=== PATIENT | female | born 1980 | race Caucasian/White ===

== ENCOUNTER 2018-02-18 17:46 | Day surgery (SDC) | payer MEDICAID, MEDICARE ==
[~2018-02-18 17:46] MED LIST: LACTATED RINGERS 1,000 ML IV ONE
[2018-02-18 18:45] LABS: GLUCOSE, URINE (UA) NEGATIVE (NEGATIVE); KETONES,URINE (UA) TRACE mg/dL (NEGATIVE); LEUKOCYTE ESTERASE, URINE NEGATIVE (NEGATIVE); NITRITE,URINE NEGATIVE (NEGATIVE); OCCULT BLOOD,URINE LARGE (NEGATIVE); PH,URINE 5.5 PH (5.0-7.5); PROTEIN,URINE TRACE mg/dL (NEGATIVE); UROBILINOGEN,URINE 0.2 (NORMAL) E.U./dL (NORMAL)
[2018-02-18 18:57] LABS: CLARITY,URINE HAZY (CLEAR)
[2018-02-18 18:58] LABS: BACTERIA,URINE None Seen /HPF (None Seen); BILIRUBIN,URINE NEGATIVE (NEGATIVE); HCG UR QUAL NEGATIVE; ICTOTEST,URINE NEGATIVE; MUCUS,URINE Marked Strands; SQUAMOUS EPITHELIAL CELL,UR FEW Squamous (<= Few)
[2018-02-18 19:20] LABS: BASOPHILS # (AUTO) 0.2 10^3/uL (0.0-0.1); BASOPHILS % (AUTO) 0.9 %; EOSINOPHILS # (AUTO) 0.1 10^3/uL (0.0-0.7); EOSINOPHILS % (AUTO) 0.3 %; HGB - HEMOGLOBIN 14.1 g/dL (12.0-16.0); LYMPHOCYTES % (AUTO) 5.6 %; MEAN CORPUSCULAR HEMOGLOBIN 29.9 pg (27.0-31.0); MEAN CORPUSCULAR HGB CONC 33.6 g/dL (32.0-36.0); MEAN CORPUSCULAR VOLUME 88.8 fL (81.0-99.0); MONOCYTES # (AUTO) 0.9 10^3/uL (0.0-1.0); MONOCYTES % (AUTO) 5.2 %; NEUTROPHILS # (AUTO) 15.8 10^3/uL (1.5-6.6); PLT - PLATELET COUNT 242 10^3/uL (130-450); RED BLOOD COUNT 4.72 10^6/uL (4.20-5.40); RED CELL DISTRIBUTION WIDTH 13.1 % (12.0-15.0)
[2018-02-18 19:39] LABS: ALBUMIN 4.6 g/dL (3.2-5.5); ALBUMIN/GLOBULIN RATIO 1.4 (1.0-2.2); BILIRUBIN,TOTAL 1.6 mg/dL (0.2-1.0); CALCIUM 9.5 mg/dL (8.5-10.3); CREATININE 0.7 mg/dL (0.4-1.0); TOTAL PROTEIN 7.9 g/dL (6.7-8.2)
--- NOTE | 2018-02-18 20:30 | ED Physician Documentation ---
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 She has had 3 episodes of abdominal pain in the last few months, twice in the right upper quadrant. But over the last 2 days has had right-sided and now pelvic pain with nausea but no vomiting. She had a small diarrheal bowel movement prior to arrival. No fevers. No history of abdominal surgeries.) Review of Systems Ten Systems: 10 systems reviewed and negative Constitutional: denies: Fever, Chills Cardiac: denies: Chest pain / pressure, Palpitations Respiratory: denies: Dyspnea, Cough GI: reports: Abdominal Pain, Nausea, Diarrhea. denies: Vomiting, Constipation, Bloody / black stool PD PAST MEDICAL HISTORY - Past Medical History Past Medical History: Yes Cardiovascular: Congestive heart failure - Past Surgical History Past Surgical History: No - Allergies Allergies/Adverse Reactions: Allergies Allergy/AdvReac Type Severity Reaction Status Date / Time codeine Allergy Anaphylaxis Verified 02/18/18 17:53 - Family History Family history: reports: Non contributory PD ED PE NORMAL - Vitals Vital signs reviewed: Yes - General General: Alert and oriented X 3, No acute distress - HEENT HEENT: PERRL, EOMI - Neck Neck: Supple, no meningeal sign, No bony TTP - Cardiac Cardiac: RRR, No murmur - Respiratory Respiratory: No respiratory distress, Clear bilaterally - Abdomen Abdomen: Normal bowel sounds, Soft, Other (Mild diffuse tenderness with significant tenderness in the right lower quadrant but no guarding or rebound) - Back Back: No CVA TTP, No spinal TTP - Derm Derm: Normal color, Warm and dry - Extremities Extremities: No edema, No calf tenderness / cord - Neuro Neuro: Alert and oriented X 3, Normal speech Results - Vitals Vitals: Vital Signs - 24 hr 02/18/18 02/18/18 02/18/18 17:50 20:00 20:09 Temperature 36.1 C L 36.9 C Heart Rate 60 58 L 77 Respiratory 18 15 26 H Rate Blood Pressure 119/71 136/68 H 132/86 H O2 Saturation 99 99 100 Oxygen O2 Source Room air - Labs Labs: Laboratory Tests 02/18/18 02/18/18 02/18/18 18:40 18:40 19:15 WBC 18.0 H RBC 4.72 Hgb 14.1 Hct 41.9 MCV 88.8 MCH 29.9 MCHC 33.6 RDW 13.1 Plt Count 242 MPV 10.0 Neut # (Auto) 15.8 H Lymph # (Auto) 1.0 L [place] # (Auto) 0.9 Eos # (Auto) 0.1 Baso # (Auto) 0.2 H Absolute Nucleated RBC 0.00 Nucleated RBC % 0.0 Sodium Potassium Chloride Carbon Dioxide Anion Gap BUN Creatinine Estimated GFR (MDRD) Glucose Calcium Total Bilirubin AST ALT Alkaline Phosphatase Total Protein Albumin Globulin Albumin/Globulin Ratio Lipase Urine Color DARK YELLOW Urine Clarity HAZY Urine pH 5.5 Ur Specific [place] 1.020 1.020 Urine Protein TRACE Urine Glucose (UA) NEGATIVE Urine Ketones TRACE Urine Occult Blood LARGE H Urine Nitrite NEGATIVE Urine Bilirubin NEGATIVE Urine Urobilinogen 0.2 (NORMAL) Ur Leukocyte Esterase NEGATIVE Urine RBC 11-25 H Urine WBC 0-3 Ur Squamous Epith Cells FEW Squamous Urine Bacteria None Seen Urine Mucus Marked Strands Ur Microscopic Review INDICATED Urine Culture Comments NOT INDICATED Urine HCG, Qual NEGATIVE 02/18/18 19:15 WBC RBC Hgb Hct MCV MCH MCHC RDW Plt Count MPV Neut # (Auto) Lymph # (Auto) [place] # (Auto) Eos # (Auto) Baso # (Auto) Absolute Nucleated RBC Nucleated RBC % Sodium 137 Potassium 3.9 Chloride 101 Carbon Dioxide 24 Anion Gap 12.0 BUN 7 Creatinine 0.7 Estimated GFR (MDRD) 93 Glucose 109 H Calcium 9.5 Total Bilirubin 1.6 H AST 21 ALT 25 Alkaline Phosphatase 79 Total Protein 7.9 Albumin 4.6 Globulin 3.3 Albumin/Globulin Ratio 1.4 Lipase 25 Urine Color Urine Clarity Urine pH Ur Specific [place] Urine Protein Urine Glucose (UA) Urine Ketones Urine Occult Blood Urine Nitrite Urine Bilirubin Urine Urobilinogen Ur Leukocyte Esterase Urine RBC Urine WBC Ur Squamous Epith Cells Urine Bacteria Urine Mucus Ur Microscopic Review Urine Culture Comments Urine HCG, Qual - Rads (name of study) CT A/P Radiology: EMP read contemporaneously (Acute appendicitis without evidence of perforation or abscess) PD MEDICAL DECISION MAKING - ED course ED course: 38-year-old woman presents with signs and symptoms consistent with acute appendicitis and a CT showing same. Spoke with Dr. Cote who will see the patient in the emergency department at 9:50 PM. We agreed on Zosyn in the interim. Departure - Departure Disposition: ED Transfer to [facility] Clinical Impression: Appendicitis Qualifiers: Appendicitis type: acute appendicitis Acute appendicitis type: with localized peritonitis Appendicitis gangrene presence: without gangrene Appendicitis perforation presence: without perforation Appendicitis abscess presence: without abscess Qualified Code(s): K35.30 - Acute appendicitis with localized peritonitis, without perforation or gangrene Condition: Serious
[2018-02-18] MEDS ORDERED: ONDANSETRON 4 MG/2 ML VIAL IVP STA (20:47)
[2018-02-18] MEDS ORDERED: HYDROmorphone 1 MG/ML CARPUJECT IVP STA (20:47)
[2018-02-18] MEDS ORDERED: IOPAMIDOL-300 100 ML VIAL ONE (21:18)
[2018-02-18] MEDS ORDERED: IOPAMIDOL-300 100 ML VIAL IVP ONE (21:48)
[2018-02-18] MEDS ORDERED: PIPERACILLIN/TAZOBACTAM 3.375 GM in SODIUM CHLORIDE 0.9% MINIBAG 100 ML IV STA (21:48)
--- NOTE | 2018-02-18 22:01 | CT Report ---
Reason: IV only, RLQ pain Procedure Date: 02/18/2018 Accession Number: [id number] / [id number] Procedure: CT - Abdomen/Pelvis W/ CPT Code: FULL RESULT: EXAM: CT ABDOMEN AND PELVIS EXAM DATE: 02/18/2018 09:35 PM. CLINICAL HISTORY: IV only, RLQ pain. COMPARISONS: None. TECHNIQUE: Routine helical CT imaging was performed through the abdomen and pelvis. IV contrast: 100 ML ISOVUE 300. Enteric contrast: No. Reconstructions: Coronal and sagittal. In accordance with CT protocol optimization, one or more of the following dose reduction techniques were utilized for this exam: automated exposure control, adjustment of mA and/or KV based on patient size, or use of iterative reconstructive technique. FINDINGS: Lung Bases: Unremarkable. Liver: Normal. No masses. Gallbladder/Bile Ducts: Unremarkable. Spleen: Normal. Pancreas: Normal. Adrenal Glands: Normal. Kidneys: Normal. No masses or hydronephrosis. Peritoneal Cavity/Bowel: Stomach and small bowel are normal. No acute colonic abnormalities. There are subcentimeter right lower quadrant lymph nodes. No intraperitoneal free air. There is acute appendicitis. The appendix is thick-walled and dilated. It measures up to 1.5 cm in diameter. There is adjacent fat stranding. Pelvic Organs: No acute pelvic organ abnormalities are seen. Vasculature: No acute vascular findings. Bones: No significant abnormality. Other: None. IMPRESSION: There is acute appendicitis. The appendix is dilated up to 1.5 cm. It is thick-walled. There is adjacent fat stranding. There is no evidence of perforation or periappendiceal abscess. RADIA
--- NOTE | 2018-02-18 22:45 | ANESTHESIA ---
Pre-Anesthesia VS, & Labs - Diagnosis Acute appendicitis - Procedure Macedonian appy Vital Signs: Temp Pulse Resp BP Pulse Ox 36.9 C 77 26 H 132/86 H 100 02/18/18 20:00 02/18/18 20:09 02/18/18 20:09 02/18/18 20:09 02/18/18 20:09 Height 6 ft 1 in Weight (kg) 99.79 kg Body Mass Index 29.0 - NPO >8 hours - Is Patient ?: No - Lab Results Current Lab Results: Laboratory Tests 02/18/18 19:15: Sodium 137, Potassium 3.9, Chloride 101, Carbon Dioxide 24, Anion Gap 12.0, BUN 7, Creatinine 0.7, Estimated GFR (MDRD) 93, Glucose 109 H, Calcium 9.5, Total Bilirubin 1.6 H, AST 21, ALT 25, Alkaline Phosphatase 79, Total Protein 7.9, Albumin 4.6, Globulin 3.3, Albumin/Globulin Ratio 1.4, Lipase 25 02/18/18 19:15: WBC 18.0 H, RBC 4.72, Hgb 14.1, Hct 41.9, MCV 88.8, MCH 29.9, MCHC 33.6, RDW 13.1, Plt Count 242, MPV 10.0, Neut # (Auto) 15.8 H, Lymph # (Auto) 1.0 L, [place] # (Auto) 0.9, Eos # (Auto) 0.1, Baso # (Auto) 0.2 H, Absolute Nucleated RBC 0.00, Nucleated RBC % 0.0 Lab results reviewed: Yes Fish Bones: 02/18/18 19:15 02/18/18 19:15 Home Medications and Allergies Allergies/Adverse Reactions: Allergies Allergy/AdvReac Type Severity Reaction Status Date / Time codeine Allergy Anaphylaxis Verified 02/18/18 17:53 Anes History & Medical History - Anesthetic History Anesthesia Complications: reports: No previous complications Family history of Anesthesia Complications: Denies Family history of Malignant Hyperthermia: Denies - Medical History Cardiovascular: reports: Congestive heart failure Pulmonary: reports: Asthma Gastrointestinal: reports: None Urinary: reports: None Neuro: reports: None Musculoskeletal: reports: None Endocrine/Autoimmune: reports: Type 2 diabetes Blood Disorders: reports: None Smoking Status: Current every day smoker Psychosocial: reports: No issues indicated, Substance abuse - Surgical History Cardiothoracic: AICD Orthopedic: ACL reconstruction Exam General: Alert Dental: Loose/Frag Mouth Opening: Greater than 4 Fingerbreadths Neck Mobility: Normal Mallampati classification: I Thyromental Distance: greater than 6 cm Respiratory: Lungs clear Cardiovascular: Regular rate Neurological: Normal speech Mental/Cognitive Status: Alert/Oriented X3 Cognitive Status: Within normal limits Plan Anesthesia Type: General Consent for Procedure(s) Verified and Reviewed: Yes Code Status: Attempt Resuscitation ASA classification: 3-Severe systemic disease Is this case an emergency?: Yes
[2018-02-18] MEDS ORDERED: BUPIVACAINE 0.5% PF 30 ML VIAL ONE (22:49)
--- NOTE | 2018-02-18 22:50 | CONSULTATION NOTE ---
Referring Provider Name of Referring Provider:: Dr. Karthik Alas Consult Date: 02/18/18 Chief Complaint - Chief Complaint Chief Complaint: RLQ pain (recurrent but not resolving) History of Present Illness - Admitted From Admitted From:: NOT admitted - placed in outpatient - History Obtained From Records Reviewed: Yes History obtained from: Patient, chart and Dr. Alas Exam Limitations: None - History of Present Illness HPI Comment/Other: The patient is a very pleasant 38-year-old female evaluated in room 7 at [facility]'s emergency department in the presence of her . The patient states that she has had several recurrences of this pain but recently this occurred and did not improve. This prompted her admission to the emergency department. This started on Sunday and was quite severe. 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 Following this the pain worsened prompting her admission to the emergency department where Dr. Alas obtained a CT scan that was consistent with acute appendicitis (nonruptured). The patient states that she had nausea which was controlled nicely with the medications that she was given in the emergency department. She has not vomited. With the symptoms, she is mildly anorexic. Important to her history is that she had some viral cardiomyopathy as a young child and had an AICD placed. She has been followed by a import coordination and production head and is compensated well. She feels that she is in the best health of her life. The AICD has only shocked her once. Per her history, there is nothing to be done to improve her cardiac status prior to the operation. History - Past Medical History Cardiovascular: reports: Congestive heart failure Meds/Allgy - Allergies Allergies/Adverse Reactions: Allergies Allergy/AdvReac Type Severity Reaction Status Date / Time codeine Allergy Anaphylaxis Verified 02/18/18 17:53 Review of Systems - Constitutional Constitutional: reports: Malaise. denies: Fatigue, Fever, Chills - Eyes Eyes: denies: Pain - Ears, Nose & Throat Ears, Nose & Throat: denies: Ear pain - Cardiovascular Cariovascular: denies: Palpitations, Chest pain, Edema - Respiratory Respiratory: denies: Cough - Gastrointestinal Gastrointestinal: reports: Abdominal pain, Nausea. denies: Rectal bleeding, Black stools, Bloody stools, Vomiting - Genitourinary Genitourinary: denies: Dysuria - Neurological Neurological: denies: General weakness, Focal weakness Exam - Vital Signs Reviewed Vital Signs: Yes Vital Signs: Vital Signs x48h Temp Pulse Resp BP Pulse Ox 02/18/18 20:09 77 26 H 132/86 H 100 02/18/18 20:00 36.9 C 58 L 15 136/68 H 99 02/18/18 17:50 36.1 C L 60 18 119/71 99 - Physical Exam General Appearance: positive: No acute distress Eyes Bilateral: positive: No lid inflammation, Conjunctivae nml, No scleral icterus ENT: positive: Dry mucous membranes Neck: positive: Trachea midline Respiratory: positive: Chest non-tender, No respiratory distress, Breath sounds nml Cardiovascular: positive: Regular rate & rhythm Abdomen: positive: Nml bowel sounds, Tenderness (In the right lower quadrant at McBurney's point.) Rectal: positive: Other (Deferred.) Skin: positive: Color nml Extremities: positive: Non-tender, Nml appearance Neurologic/Psychiatric: positive: Oriented x3 Conclusion/Plan - Diagnosis Diagnosis: Acute appendicitis. - Plan Plan: Laparoscopic appendectomy, possible open appendectomy. The indications, procedure, alternatives including no surgery, possible risks including infection (deep or superficial), bleeding requiring transfusion (with all of its risks), and were fully explained to the patient and all questions answered. I also explained the pathophysiology. I explained that following the surgery I did not want her lifting anything over 15 pounds for 6 weeks to allow for opt imal healing and to decrease the likelihood that a hernia would occur. All questions were fully answered. Verbal and written consent was obtained. The patient, in preparation for surgery will be nothing by mouth, and receive 3.375 g of Zosyn with induction. I asked her to contact me with any surgical questions and her concerns and she stated that she would. I asked her to let me know if there is any way we can make her stay at [facility] more comfortable and she stated that she would let me know. The plan is to do this operation as an outpatient procedure and to discharge her home following the procedure at a reasonable hour in the morning. 45 minutes of [id number] time spent with the patient, over 80% in discussion and coordination of her care, and completion of the requisite paperwork. - Lab Results Lab results reviewed: Yes Fish Bones: 02/18/18 19:15 02/18/18 19:15 - Diagnostic Imaging Results Diagnostic Imaging Results: positive: Final report reviewed, Read independently Diagnostic Imaging Results Comments: Consistent with acute appendicitis.
[2018-02-18] MEDS ORDERED: ONDANSETRON 40 MG/20 ML MDV IV ONE (23:50)
[2018-02-18] MEDS ORDERED: ACETAMINOPHEN 1,000 MG/100 ML 100 ML IV ONE (23:50)
[2018-02-18] MEDS ORDERED: PROPOFOL 200 MG/20 ML VIAL IVP ONE (23:50)
[2018-02-18] MEDS ORDERED: ROCURONIUM 50 MG/5 ML VIAL IVP ONE (23:50)
[2018-02-18] MEDS ORDERED: LIDOCAINE-MPF 2% 5 ML VIAL IM ONE (23:50)
[2018-02-18] MEDS ORDERED: MIDAZOLAM 2 MG/2 ML VIAL IVP ONE (23:50)
[2018-02-18] MEDS ORDERED: fentaNYL 250 MCG/5 ML VIAL IVP ONE (23:50)
[2018-02-18] MEDS ORDERED: BUPIVACAINE 0.5% PF 30 ML VIAL SUBQ ONE ×2 (23:52)
[2018-02-18] MEDS ORDERED: LACTATED RINGERS 1,000 ML IV ONE (23:56)
--- NOTE | 2018-02-19 00:43 | OPERATIVE REPORT ---
Operative Report - General Procedure Date: 02/19/18 Planned Procedure: Laparoscopic appendectomy Pre-Op Diagnosis: Acute appendicitis Procedure Performed: Laparoscopic appendectomy Post Op Diagnosis: Acute appendicitis but with a concern for unusual cause for appendicitis (p - Procedure Note Primary Surgeon: Harpal Cote MD Anesthesia Provider: Jensen Felix CRNA Anesthesia Technique: General ET tube, Local (30 mL of half percent Marcaine) IV Fluids (mL): 1,100 Estimated Blood Loss (mL): 10 Complications: None. - Other Other Information/Narrative: OPERATIVE DESCRIPTION/REPORT: After verbal and written informed consent was obtained detailing the risks of infection, bleeding requiring transfusion with its risks, and , and after I met with the patient confirming the surgery and the site of the surgery, the patient was brought to the operative suite and placed supine on the operating table. Great care was taken to avoid pressure points to prevent pressure necrosis or nerve injury. Monitoring devices were applied along with TEDs and pneumatic compressive stockings (to prevent DVT). The patient received preoperative antibiotics for surgical prophylaxis. Jensen Felix CRNA sedated and anesthetized the patient for the entire procedure. The patient was prepped and draped in the usual sterile manner. With the patient draped my initials were clearly visible. A "time in" then confirmed that the patient was identified with 3 identifiers (name, date and medical record number), the history and physical was in the chart, the signed consent confirming the procedure was in the chart, the patient was in the correct position, the aforementioned prophylactic measures were in place or given, we had the correct personnel and equipment to complete the procedure and that anesthesia, surgery and nursing were given an opportunity to express any concerns. With the agreement of everyone in the room, we proceeded with the operation. A 2 cm incision umbilical incition was made and dissection down to the fascia was completed in a blunt and sharp manner. The fascia was then cleared of subcutaneous tissue using a tonsil clamp and a small incision was made in the fascia gaining entry into the abdomen without incident. A 12 mm blunt tipped balloon tipped Brigida port was placed into the abdomen and the balloon inflated to keep it in place. The pneumoperitoneum was then established using carbon dioxide insufflation to a steady state pressure of 15 mmHg. Two additional 5 mm ports were placed in the midline above and below the umbilicus. The patient was then rotated slightly to their left and slightly head down (Trendelenberg). Thin adhesions of the right colon and cecum to the anterior abdominal wall were seen and taken down using serial application of the LigaSure. The appendix was clearly identified and noted to be thickened and clearly consistent with acute appendicitis. In fact the appendix seemed a little too large for garden-variety appendicitis and was very hard making it very difficult to grasp. The end of the appendix was grasped with a Prestige grasper and lifted anteriorly thus revealing the appendiceal mesentery. The mesentery was taken using sequential application of the Ligasure until the base of the appendix was visualized without any adherent tissue. The base of the appendix was then stapled and transected using a laparoscopic vascular stapler. 2 applications of the stapler were required to get across the base completely. In both applications blue loads were used. Visualization of the staple line revealed absolutely no bleeding or leak of bowel contents. Photographs were taken. The appendix was then place into an endopouch for the remainder of the case. The right lower quadrant was then copiously irrigated using 2 L of warm sterile saline. The patient was then rotated to lie flat. The fascia and skin were then injected with the 30 cc of % marcaine for pain control. The insufflation was released and the ports removed. With the removal of the umbilical port the Endopouch containing the appendix was also removed. The fascial defect was then approximated using 0-Vicryl suture in a [id number] fashion. The skin incisions were approximated with 4-0 Monocryl in a subcuticular fashion. The surgical prep was removed, the skin was further glued together using Dermabond. A dressing was applied. At this point a time out was performed that confirmed that all the counts were correct, the procedure that was performed, the blood loss, the urine output, the IV fluids administered, and the patients condition. Having tolerated the procedure well, the patient was subsequently extubated and taken to recovery room in good and stable condition. [employer] disclaimer: This document was created in part using voice recognition technology. Because of the inherent limitations of the system ([employer] Dictate user manual states that the licensee understands that speech recognition is a statistical process and that recognition errors are inherent in the process), occasional same sounding word substitutions and grammatical errors do occur and persist despite proofreading. Please read this document for context.
[2018-02-19] MEDS ORDERED: HYDROmorphone 0.5 MG/0.5 ML SYRINGE IVP PRN ×2 (00:44→07:58)
[2018-02-19] MEDS ORDERED: ONDANSETRON 4 MG/2 ML VIAL IVP PRN ×2 (00:44→07:58)
[2018-02-19] MEDS ORDERED: HYDROcod/ACETAM 5/325 MG TABLET PO PRN (00:44)
[2018-02-19] MEDS ORDERED: HYDROcod/ACETAM 5/325 MG TABLET ONE (03:05)
[2018-02-19] MEDS ORDERED: PIPERACILLIN/TAZOBACTAM 3.375 GM in SODIUM CHLORIDE 0.9% MINIBAG 100 ML IV SCH ×2 (06:00→13:00)
[2018-02-19 06:38] LABS: BASOPHILS # (AUTO) 0.1 10^3/uL (0.0-0.1); BASOPHILS % (AUTO) 0.7 %; EOSINOPHILS % (AUTO) 0.1 %; LYMPHOCYTES # (AUTO) 1.7 10^3/uL (1.5-3.5); LYMPHOCYTES % (AUTO) 10.8 %; MEAN CORPUSCULAR VOLUME 88.5 fL (81.0-99.0); MEAN PLATELET VOLUME 10.2 fL (7.9-10.8); MONOCYTES # (AUTO) 1.4 10^3/uL (0.0-1.0); MONOCYTES % (AUTO) 8.8 %; NEUTROPHILS # (AUTO) 12.3 10^3/uL (1.5-6.6); NEUTROPHILS % (AUTO) 79.6 %; PLT - PLATELET COUNT 181 10^3/uL (130-450); RED BLOOD COUNT 3.88 10^6/uL (4.20-5.40); WHITE BLOOD COUNT 15.5 x10^3/uL (4.8-10.8)
[2018-02-19] MEDS ORDERED: SODIUM CHLORIDE 0.9% 100ML 100 ML IV ONE (06:38)
[2018-02-19] MEDS: HYDROcod/ACETAM 5/325 MG TABLET PO PRN ×2 (10:14→13:57)
[2018-02-19 12:48] VITALS: BP 102/44
--- NOTE | 2018-02-19 13:58 | Discharge Plan ---
Discharge Plan Disposition: 01 Home, Self Care Condition: Good Prescriptions: HYDROcod/ACETAM 325 [[place] 325] 1 tab PO Q4HR PRN #15 tablet PRN Reason: Pain Diet: Regular Activity Restrictions: Ni lifting >15 pounds for 6 weeks Shower Restrictions: No Driving Restrictions: Yes (Until seen in office.) Weight Bearing: Full Weight Additional Instructions or Follow Up instructions: Call with questions or concerns. No Smoking: If you smoke, Please STOP! Call for help. Follow-up with: Harpal Cote MD [Provider Admit Priv/Credential] -
== END 2018-02-19 14:24 | disposition home or self-care (01) ==
LOC: ED 17:46 → SDS 22:05 → OBS 02-19 00:46 → SDS 02-19 14:24
PROVIDERS: ATTEND Surgery
PROC: 0DTJ4ZZ Resection of Appendix, Percutaneous Endoscopic Approach (ICD-10-PCS; principal; 2018-02-19)
DX: K35.30 Acute appendicitis with localized peritonitis, without perforation or gangrene (principal); E11.9 Type 2 diabetes mellitus without complications; F17.200 Nicotine dependence, unspecified, uncomplicated; Z86.79 Personal history of other diseases of the circulatory system; Z95.810 Presence of automatic (implantable) cardiac defibrillator; Z86.19 Personal history of other infectious and parasitic diseases
CPT/HCPCS: 36415; 44970; 74177; 80053; 81001; 81025; 83690; 85025; 96374; 99283; 99284; A9270; J0131; J1170; J2405; J3010; J7120; Q9967; 81003; 87086

== ENCOUNTER 2018-02-23 12:01 | Emergency (ER) | payer MEDICARE ==
--- NOTE | 2018-02-23 12:45 | ED Physician Documentation ---
PD HPI WOUND RECHECK - Stated complaint Stated Complaint: POST SURG COMPL - Chief complaint Chief Complaint: Wound - Additional information Additional information: 38-year-old female presents to the emergency department for evaluation of surg ical wounds. The wound over her umbilicus has had the Dermabond slightly fall off and the wound has slightly open. The patient's noticed redness of all the wound edges. No reports of drainage, fever or significant swelling or redness. Symptoms are described as mild. No triggering factors. Review of Systems Constitutional: denies: Fever, Chills GI: denies: Abdominal Pain Skin: reports: Other (Surgical wounds) Psychiatric: denies: Depressed Immunocompromised: denies: Chemotherapy PD PAST MEDICAL HISTORY - Past Medical History Past Medical History: Yes Cardiovascular: Congestive heart failure Respiratory: Asthma Neuro: None Endocrine/Autoimmune: Type 2 diabetes GI: None : None Musculoskeletal: None - Past Surgical History Past Surgical History: Yes General: Appendectomy Ortho: ACL reconstruction Cardiovascular: AICD - Present Medications Home Medications: Ambulatory Orders Medication Instructions Recorded Confirmed RX: Aspirin 81 mg PO 02/18/18 RX: Carvedilol [Coreg] 02/18/18 RX: DULoxetine [Cymbalta] 60 mg PO DAILY 02/18/18 02/18/18 RX: Furosemide 40 mg PO 02/18/18 RX: Gabapentin 600 mg PO BID 02/18/18 02/18/18 RX: Lisinopril 10 mg PO 02/18/18 RX: Magnesium Oxide [Magnesium] 400 mg PO 02/18/18 RX: Potassium Chloride BID 02/18/18 RX: Spironolactone 25 mg PO 02/18/18 RX: HYDROcod/ACETAM 5/325 [[place] 1 tab PO Q4HR PRN #15 tablet 02/19/18 5/325] Cephalexin [Keflex] 500 mg PO Q6H #28 capsule 02/23/18 - Allergies Allergies/Adverse Reactions: Allergies Allergy/AdvReac Type Severity Reaction Status Date / Time codeine Allergy Anaphylaxis Verified 02/18/18 22:56 - Social History Does the pt smoke?: Yes Smoking Status: Current every day smoker PD ED PE NORMAL - General General: Alert and oriented X 3, No acute distress - HEENT HEENT: Atraumatic, PERRL, EOMI, Ears normal - Extremities Extremities: No deformity - Neuro Neuro: Alert and oriented X 3, Normal speech - Psych Psych: Normal affect PD ED PE EXPANDED - Abdomen Abdomen Visual: 1 - laceration (The patient has 3 surgical site wounds, 2 are still intact with Dermabond and the one over the umbilicus has slightly dehisced on the left edge. This dehiscence is very small. There is redness of the wound edges. There is no palpable underlying seroma and the wound has no active drainage. There is no surrounding signs of cellulitis.) Results - Vitals Vitals: Vital Signs - 24 hr 02/23/18 02/23/18 12:04 13:03 Temperature 36.1 C L Heart Rate 63 63 Respiratory 18 17 Rate Blood Pressure 119/73 109/72 O2 Saturation 97 97 Oxygen O2 Source Room air PD MEDICAL DECISION MAKING - ED course ED course: The patient has had a slight wound dehiscence, there is no signs of acute infection. The redness appears to be most likely from the appropriate healing process. Since the wound is several days old I would not re-Dermabond that area. This will heal via secondary intention. The patient appears appropriate for discharge and ongoing outpatient management. The patient will follow up w ith her surgeon as scheduled. I discussed warning signs for wound infection and advised returning to the emergency department for any worsening or any concerns. Departure - Departure Disposition: 01 Home, Self Care Clinical Impression: Wound dehiscence Condition: Good Instructions: Incision Care Dc, Incision Care Abdomen Dc Follow-Up: DENIA MAO PA-C [Primary Care Provider] - Within 1 week Prescriptions: Cephalexin [Keflex] 500 mg PO Q6H #28 capsule Comments: If your wound becomes more red or you see any drainage please start the antibiotic. Please return to the emergency department immediately for worsening symptoms or new concerns. Please follow-up with your surgeon as scheduled for ongoing postsurgical management. Discharge Date/Time: 02/23/18 13:03
[2018-02-23 13:04] VITALS: BP 109/72
== END 2018-02-23 13:03 | disposition home or self-care (01) ==
LOC: ED 12:01
DX: T81.31XA Disruption of external operation (surgical) wound, not elsewhere classified, initial encounter (principal); Y83.9 Surgical procedure, unspecified as the cause of abnormal reaction of the patient, or of later complication, without mention of misadventure at the time of the procedure; E11.9 Type 2 diabetes mellitus without complications; F17.200 Nicotine dependence, unspecified, uncomplicated; Z79.82 Long term (current) use of aspirin
CPT/HCPCS: 99283

== ENCOUNTER 2019-02-26 16:42 | Outpatient (CLI) | payer MEDICARE, MEDICAID | END 2019-02-26 16:43 | disposition home or self-care (01) | LOC: DI 16:42 | PROVIDERS: ATTEND Nurse Practitioner Obstetrics & Gynecology | DX: Z53.9 Procedure and treatment not carried out, unspecified reason (principal) ==

== ENCOUNTER 2020-05-11 08:51 | Outpatient (CLI) | payer MEDICARE, MEDICAID ==
--- NOTE | 2020-05-11 10:03 | XRAY Report ---
PROCEDURE: Knee 3 View LT INDICATIONS: LT KNEE PAIN, HX OF ACL TEAR TECHNIQUE: 3 views of the left knee(s) were acquired. COMPARISON: None. FINDINGS: Bones: No fractures or dislocations. Prior ACL reconstruction is noted, with a moderate degree of de generative knee joint osteoarthritis greater at the medial compartment and the lateral compartment. T his likely is posttraumatic in origin in this clinical circumstance. No suspicious bony lesions. Soft tissues: No joint effusion. No suspicious soft tissue calcifications. IMPRESSION: Prior ACL reconstruction, chronic moderate degenerative knee joint osteoarthritis as ind icated by joint space narrowing and osteophyte formation greater medially than laterally. Reviewed by: Mian Abernathy MD on 05/11/2020 10:02 AM PST Approved by: Mian Abernathy MD on 05/11/2020 10:02 AM PST Station ID: [id number]
== END 2020-05-11 08:52 | disposition home or self-care (01) ==
LOC: DI 08:51
PROVIDERS: ATTEND Physician Assistant Medical
DX: M17.12 Unilateral primary osteoarthritis, left knee (principal); M23.52 Chronic instability of knee, left knee

== ENCOUNTER 2021-02-12 13:42 | Emergency (ER) | payer MEDICARE, MEDICAID ==
[2021-02-12 13:47] VITALS: BP 124/71
[2021-02-12] MEDS ORDERED: PROPARACAINE 0.5% OPHTH DROPS 15 ML EACHEYE STA (13:54)
--- NOTE | 2021-02-12 13:55 | ED Physician Documentation ---
PD HPI OPHTHO - Stated complaint Stated Complaint: RT EYE PX - Chief complaint Chief Complaint: Heent - History obtained from History obtained from: Patient - History of Present Illness Timing - onset: How many weeks ago (1) Timing - duration: Weeks (1) Timing - details: Gradual onset Pain level max: 6 Pain level now: 4 Location: Right Quality / character: Aching, Throbbing Associated symptoms: Redness, Tearing, FB sensation. No: Photophobia, Double vision, Decreased vision, Loss of vision Contributing factors: No: Exposed to conjunctivitis, UV light (welding etc), Chemical exposure, acid, Chemical exposure, base, Wears glasses, Wears contacts Recently seen: Not recently seen - Additional information Additional information: 41-year-old female complains of right eye pain. Nothing makes it better or worse. She states that she does have 2 feral kittens at home and thinks she may have gotten scratched. Does not wear contacts or glasses. She states she does have a history of eye allergies. No fevers. No chills. Review of Systems Constitutional: denies: Fever, Chills Respiratory: denies: Cough GI: denies: Nausea, Vomiting, Diarrhea PD PAST MEDICAL HISTORY - Past Medical History Cardiovascular: Congestive heart failure Respiratory: Asthma Neuro: None Endocrine/Autoimmune: Type 2 diabetes GI: None : None Musculoskeletal: None - Past Surgical History Past Surgical History: Yes General: Appendectomy Ortho: ACL reconstruction Cardiovascular: AICD - Present Medications Home Medications: Ambulatory Orders Medication Instructions Recorded Confirmed Aspirin 81 mg PO 02/18/18 Carvedilol [Coreg] 02/18/18 DULoxetine [Cymbalta] 60 mg PO DAILY 02/18/18 02/18/18 Furosemide 40 mg PO 02/18/18 Gabapentin 600 mg PO BID 02/18/18 02/18/18 Magnesium Oxide [Magnesium] 400 mg PO 02/18/18 Potassium Chloride BID 02/18/18 Spironolactone 25 mg PO 02/18/18 lisinopriL [Lisinopril] 10 mg PO 02/18/18 HYDROcod/ACETAM 5/325 [[place] 5/325] 1 tab PO Q4HR PRN #15 tablet 02/19/18 cephALEXin [Keflex] 500 mg PO Q6H #28 capsule 02/23/18 Ofloxacin 0.3% Ophth Drops 1 - 2 drops RIGHTEYE Q4H #5 ml 02/12/21 [Ocuflox 0.3% Ophth Drops] - Allergies Allergies/Adverse Reactions: Allergies Allergy/AdvReac Type Severity Reaction Status Date / Time codeine Allergy Anaphylaxis Verified 02/12/21 13:45 - Social History Does the pt smoke?: Yes Smoking Status: Current every day smoker PD ED PE NORMAL - Vitals Vital signs reviewed: Yes - General General: Alert and oriented X 3, No acute distress - HEENT HEENT: EOMI, Other (Conjunctival injection to the right eye. There is a small amount of fluorescein uptake at the left lower aspect of the cornea. Eyelids everted. No foreign body visible. Pupil is regular. Normal vision.) Results - Vitals Vitals: Vital Signs - 24 hr 02/12/21 13:45 Temperature 36.5 C Heart Rate 62 Respiratory 16 Rate Blood Pressure 124/71 O2 Saturation 98 Oxygen O2 Source Room air PD MEDICAL DECISION MAKING - ED course Complexity details: considered differential, d/w patient ED course: Patient appears to have a small corneal abrasion. Will place on ophthalmic antibiotics for this. Patient is well-appearing, nontoxic. Afebrile. Does not wear contacts or glasses. She will follow up with her ophthalmology for repeat evaluation. Patient counseled regarding signs and symptoms for which I believe and urgent re-evaluation would be necessary. Patient with good understanding of and agreement to plan and is comfortable going home at this time This document was made in part using voice recognition software. While efforts are made to proofread this document, sound alike and grammatical errors may occur. Departure - Departure Disposition: 01 Home, Self Care Clinical Impression: Corneal abrasion, right Qualifiers: Encounter type: initial encounter Qualified Code(s): S05.01XA - Injury of conjunctiva and corneal abrasion without foreign body, right eye, initial encounter Condition: Good Instructions: ED Eye Injury Corneal Abrasion Follow-Up: Princess Fuller PA-C [Primary Care Provider] - Chito Neves MD [Provider Admit Priv/Credential] - Within 3 Days Prescriptions: Ofloxacin 0.3% Ophth Drops [Ocuflox 0.3% Ophth Drops] 1 - 2 drops RIGHTEYE Q4H #5 ml Comments: Your prescription was sent to [facility] in [place]. Please use the eyedrops as prescribed. It is importantly follow-up with Dr. Neves early next week for repeat evaluation of your eye. Return if you worsen. Discharge Date/Time: 02/12/21 14:13
== END 2021-02-12 14:13 | disposition home or self-care (01) ==
LOC: ED 13:42
DX: S05.01XA Injury of conjunctiva and corneal abrasion without foreign body, right eye, initial encounter (principal); X58.XXXA Exposure to other specified factors, initial encounter; Y92.9 Unspecified place or not applicable; I50.9 Heart failure, unspecified; E11.9 Type 2 diabetes mellitus without complications; Z95.810 Presence of automatic (implantable) cardiac defibrillator; F17.200 Nicotine dependence, unspecified, uncomplicated
CPT/HCPCS: 99282; 99283; J3490

== ENCOUNTER 2022-06-05 14:18 | Outpatient (CLI) | payer OTHER | END 2022-06-05 14:19 | disposition home or self-care (01) | LOC: DI 14:18 | PROVIDERS: ATTEND Physician Assistant | DX: Z53.9 Procedure and treatment not carried out, unspecified reason (principal) ==

== ENCOUNTER 2022-06-05 14:18 | Outpatient (CLI) | payer OTHER ==
--- NOTE | 2022-06-06 12:24 | Mammography Report ---
BILATERAL DIGITAL SCREENING MAMMOGRAM 3D/2D: 06/05/2022 CLINICAL: Routine screening. Mother with breast cancer. Comparison is made to exam dated: 06/29/2016 mammogram - [facility]. There are scattered areas of fibroglandular density in both breasts (category b / 25%-50% glandular t issue). No significant masses, calcifications, or other findings are seen in either breast. There has been no significant interval change. IMPRESSION: NEGATIVE There is no mammographic evidence of malignancy. A 1 year screening mammogram is recommended. This exam was interpreted at Station ID: [id number]. NOTE: For mammograms, a report in lay terms will be sent to the patient. Approximately 15% of breast malignancies will not be visualized mammographically. In the management of a palpable breast mass, a negative mammogram must not discourage biopsy of a clinically suspicious lesion. Electronically Signed By: Ricardo Bowling M.D. slc/penrad:06/05/2022 15:11:48 ACR BI-RADS Category 1: Negative 3341F PARENCHYMAL PATTERN: (A) - The breast(s) demonstrate(s) scattered fibroglandular densities. BI-RADS CATEGORY: (1) - 1 RECOMMENDATION: (ANNUAL) - Recommend routine annual screening mammography. [id number] 1 year screening LATERALITY: (B)
== END 2022-06-05 14:19 | disposition home or self-care (01) ==
LOC: DI 14:18
PROVIDERS: ATTEND Physician Assistant
DX: Z12.31 Encounter for screening mammogram for malignant neoplasm of breast (principal); Z80.3 Family history of malignant neoplasm of breast

== ENCOUNTER 2022-08-12 11:08 | Outpatient (CLI) | payer OTHER ==
--- NOTE | 2022-08-12 12:13 | XRAY Report ---
PROCEDURE: Ankle 3 View LT INDICATIONS: POLYARTHRITIS TECHNIQUE: 3 views of the ankle were acquired. COMPARISON: None. FINDINGS: Bones: Normal bone mineralization. Small ossicle associated with the medial malleolus may reflect pr ior injury. No soft tissue swelling. Soft tissues: No tibiotalar joint effusion. Achilles tendon appears normal. IMPRESSION: No acute bony abnormality. Reviewed by: Arron Rosen MD on 08/12/2022 11:12 AM [place] Approved by: Arron Rosen MD on 08/12/2022 11:12 AM AKDT Station ID: [id number]
--- NOTE | 2022-08-12 12:15 | XRAY Report ---
PROCEDURE: Knee 3 View BILAT INDICATIONS: POLYARTHRITIS TECHNIQUE: 5 views of the bilateral knee(s) were acquired. COMPARISON: None. FINDINGS: Bones: Bilateral ACL repair noted to. Mild bilateral joint space and narrowing with marginal osteoph ytes are present. Small bilateral joint effusions are present as well with calcific densities project ing over the suprapatellar recess of the left joint space, possible intra-articular loose bodies. Soft tissues: Unremarkable IMPRESSION: Bilateral ACL repair with mild lateral joint effusion and probable intra-articular calcific loose bod ies on the left Reviewed by: Arron Rosen MD on 08/12/2022 11:13 AM [place] Approved by: Arron Rosen MD on 08/12/2022 11:13 AM [place] Station ID: [id number]
--- NOTE | 2022-08-12 12:19 | XRAY Report ---
PROCEDURE: Wrist 4 View BILAT INDICATIONS: POLYARTHRITIS TECHNIQUE: 4 views of each wrist was obtained COMPARISON: None. FINDINGS: Bones: No fractures or dislocations. No suspicious bony lesions. Scaphoid view: Unremarkable Soft tissues: No suspicious soft tissue calcifications or masses. IMPRESSION: Unremarkable bilateral wrist radiographs Reviewed by: Arron Rosen MD on 08/12/2022 11:18 AM [place] Approved by: Arron Rosen MD on 08/12/2022 11:18 AM AKDT Station ID: [id number]
--- NOTE | 2022-08-12 12:33 | XRAY Report ---
PROCEDURE: Hand 3 View BILAT INDICATIONS: POLYARTHRITIS TECHNIQUE: 3 views of the hand(s) acquired. COMPARISON: None. FINDINGS: Bones: No fractures or dislocations. No suspicious bony lesions. Soft tissues: No suspicious soft tissue calcifications or masses. IMPRESSION: Normal bilateral hand radiographs Reviewed by: Arron Rosen MD on 08/12/2022 11:32 AM [place] Approved by: Arron Rosen MD on 08/12/2022 11:32 AM [place] Station ID: [id number]
--- NOTE | 2022-08-12 14:06 | XRAY Report ---
PROCEDURE: Shoulder 3 View BILAT INDICATIONS: POLYARTHRITIS TECHNIQUE: 6 views of the shoulder were acquired. COMPARISON: None. FINDINGS: Bones: No fractures or dislocations. No suspicious bony lesions. Visualized ribs appear intact. Soft tissues: No suspicious soft tissue calcifications. Incidental left pacemaker pulse generator noted IMPRESSION: Unremarkable bilateral shoulder radiographs Reviewed by: Arron Rosen MD on 08/12/2022 1:04 PM [place] Approved by: Arron Rosen MD on 08/12/2022 1:04 PM [place] Station ID: [id number]
== END 2022-08-12 11:09 | disposition home or self-care (01) ==
LOC: DI 11:08
PROVIDERS: ATTEND Physician Assistant
DX: M13.0 Polyarthritis, unspecified (principal); M25.461 Effusion, right knee; M25.462 Effusion, left knee